=== PATIENT | female | born 1960 | race Caucasian/White ===

== ENCOUNTER 2017-01-25 11:00 | Emergency (ER) | payer MEDICARE ==
[~2017-01-25] VITALS: Ht 160 cm; Wt 75.0 kg
[2017-01-25 11:39] LABS: BASOPHIL % 0.6 % (0-2); PLATELET COUNT 265 x10^3mcL (130-400); RED CELL DISTRIBUTION WIDTH 13.9 % (11.5-14.5)
[2017-01-25 11:53] LABS: CALCIUM 9.5 mg/dL (8.5-10.1); CARBON DIOXIDE 28.5 mmol/L (21-32); CHLORIDE SERUM 104 mmol/L (98-107); GFR1 > 60 mL/min; GLUCOSE SERUM 91 mg/dL (74-106); POTASSIUM SERUM 4.7 mmol/L (3.5-5.1); SODIUM SERUM 141 mmol/L (136-145)
[2017-01-25 11:55] LABS: microscopic required? YES; urine erythrocyte NEGATIVE (NEGATIVE)
[2017-01-25 11:57] LABS: ALBUMIN 3.9 g/dL (3.4-5.0); ALKALINE PHOSPHATASE 66 U/L (46-116); ALT/SGPT 25 U/L (14-59); AST/SGOT 13 U/L (15-37); TOTAL PROTEIN, SERUM 7.3 g/dL (6.4-8.2)
[2017-01-25 12:53] VITALS: BP 117/78
== END 2017-01-25 12:53 | disposition home or self-care (01) ==
LOC: ED 11:00
PROVIDERS: Emergency Medicine
DX: N39.0 Urinary tract infection, site not specified (principal); M79.7 Fibromyalgia; M06.9 Rheumatoid arthritis, unspecified; G20 Parkinson's disease
CPT/HCPCS: 36415; J1885

== ENCOUNTER 2017-01-28 08:24 | Emergency (ER) | payer MEDICARE, MEDICAID ==
[~2017-01-28] VITALS: Ht 160 cm; Wt 76.0 kg
[2017-01-28 10:10] VITALS: BP 125/76
== END 2017-01-28 10:10 | disposition home or self-care (01) ==
LOC: ED 08:24
DX: B02.9 Zoster without complications (principal); M79.7 Fibromyalgia; M06.9 Rheumatoid arthritis, unspecified
CPT/HCPCS: J1170; J1885; Q0162